=== PATIENT | male | born 1955 | race Caucasian/White ===

== ENCOUNTER 2019-05-25 18:33 | Inpatient (IN) | payer MEDICARE, OTHER ==
[~2019-05-25] VITALS: Ht 170.2 cm; Wt 54.4 kg
[2019-05-25] MEDS ORDERED: IV RINGERS SOLUTION,LACTATED 1,000 ML IV SCH (18:49)
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
[2019-05-25] MEDS ORDERED: ONDANSETRON PF 4 MG/2 ML VIAL. IV PRN (19:00)
[2019-05-25] MEDS ORDERED: ACETAMINOPHEN 325 MG TABLET PO PRN (19:00)
[2019-05-25] MEDS ORDERED: VANCOMYCIN 1 GM in IV NORMAL SALINE 250ML 250 ML IV ONE (19:00)
[2019-05-25] MEDS ORDERED: cefTRIAXone SODIUM 1 GM VIAL ONE ×2 (19:02→19:57)
[2019-05-25] MEDS ORDERED: IV NORMAL SALINE 50ML 50 ML ONE (19:02)
--- NOTE | 2019-05-25 19:13 | RAD ---
Exam: Chest one view INDICATION: Cough TECHNIQUE: Frontal view of the chest Comparisons: None FINDINGS: The cardiomediastinal silhouette and pulmonary vessels are within normal limits. The lung and pleural spaces are clear. IMPRESSION: No acute cardiopulmonary process. Electronically signed by: Tessie Morales MD (05/25/2019 7:10 PM) [facility]
[2019-05-25] MEDS ORDERED: VANCOMYCIN PER PHARMACY MC PRN (19:15)
[2019-05-25] MEDS ORDERED: AZITHROMYCIN 250 MG TABLET. PO ONE (19:30)
[2019-05-25] MEDS ORDERED: VANCOMYCIN 1.5 GM in IV NORMAL SALINE 500ML 500 ML IV ONE (19:45)
[2019-05-25 19:53] LABS: BASO # 0.1 x10^3/uL (0.0-0.2); BASO % 1 % (0-3); EOS % 0 % (0-3); HEMATOCRIT 38.6 % (39.0-53.0); HEMOGLOBIN 12.8 g/dL (13.0-17.5); LYMPH # 1.3 x10^3/uL (1.0-4.8); LYMPH % 13 % (24-48); MEAN CORPUSCULAR HEMOGLOBIN 31 pg (25-35); MEAN CORPUSCULAR HGB CONC 33 g/dL (31-37); MEAN CORPUSCULAR VOLUME 92 fL (79-100); MONO # 0.8 x10^3/uL (0.0-1.1); MONO % 8 % (0-9); NEUT # 8.1 x10^3uL (1.8-7.7); NEUT % 78 % (31-73); PLATELET COUNT 285 x10^3/uL (140-400); RED BLOOD COUNT 4.19 x10^6/uL (4.30-5.70); RED CELL DISTRIBUTION WIDTH 14.3 % (11.5-14.5); WHITE BLOOD COUNT 10.3 x10^3/uL (4.0-11.0)
[2019-05-25] MEDS ORDERED: IV NORMAL SALINE 100ML 100 ML ONE (19:56)
[2019-05-25 20:11] LABS: ALBUMIN 3.4 g/dL (3.4-5.0); CALCIUM 8.9 mg/dL (8.5-10.1); CREATININE 1.3 mg/dL (0.7-1.3); DIRECT BILIRUBIN 0.1 mg/dL (0.0-0.2); GFR 55.4; MAGNESIUM 1.9 mg/dL (1.8-2.4); POTASSIUM 4.3 mmol/L (3.5-5.1); TOTAL BILIRUBIN 0.4 mg/dL (0.2-1.0)
[2019-05-25 21:30] VITALS: BP 126/76
[2019-05-25 21:38] LABS: BARBITURATES NEG (NEG); BENZODIAZEPINES NEG (NEG); CANNABINOIDS NEG (NEG); COCAINE POS (NEG); METHADONE NEG (NEG); OPIATES NEG (NEG); PHENCYCLIDINE NEG (NEG)
[2019-05-25 21:40] LABS: AMPHETAMINE/METHAMPHETAMINE POS (NEG)
[2019-05-25 21:54] LABS: BILIRUBIN,URINE NEG (NEG); CLARITY,URINE CLEAR; COLOR,URINE AMBER; GLUCOSE,URINE NEG (NEG)
[2019-05-25 21:55] LABS: BACTERIA,URINE FEW /HPF (0-FEW); NITRITE,URINE NEG (NEG); RBC,URINE OCC /HPF (0-2); SQUAMOUS EPITHELIAL CELL,UR OCC /LPF; UROBILINOGEN,URINE 0.2 mg/dL (0.2 mg/dL); WBC,URINE 0 /HPF (0-4)
[2019-05-25] MEDS ORDERED: CYCL5TAB PO (22:31)
--- NOTE | 2019-05-25 23:46 | RAD ---
Exam: Bilateral lower extremity venous duplex study INDICATION: Leg swelling TECHNIQUE: Using a combination of real-time ultrasound imaging and color-flow and pulse Doppler imaging techniques along with graded compression and augmentation, duplex evaluation of the deep venous systems of bilateral lower extremity was performed. Multiple images were obtained. Findings: There is no sonographic evidence for deep venous thrombosis involving the visualized deep venous structures of the bilateral lower extremity. IMPRESSION: No acute DVT in the bilateral lower extremities. Electronically signed by: Tessie Morales MD (05/25/2019 11:44 PM) [facility]
--- NOTE | 2019-05-26 00:10 | RAD ---
Exam: Ultrasound penis Indication: Penile injury Technique: Real-time grayscale and color Doppler images of the penis were obtained by the department offset second press operator. Comparisons: None FINDINGS: Soft tissues are diffusely edematous. Along the left lateral undersurface of the penis there is a heterogenous area which measures 4.4 x 3.0 x 2.5 cm which runs along the left lateral margin of the corpus spongiosum and undersurface of the left corpus cavernosum. IMPRESSION: 1. Heterogeneously hypoechoic area measuring 4.4 x 3.3 x 2.5 cm along the left lateral surface of the corpus spongiosum and undersurface of the left corpus cavernosum and likely within the deep fascia concerning for ruptured corpus cavernosum 2. A break within the tunica albuginea is not identified on ultrasound. If further evaluation is desired MRI can be performed. Electronically signed by: Tessie Morales MD (05/26/2019 12:07 AM) [facility]
[2019-05-26] MEDS ORDERED: ALBU2.5V8 INH (01:39)
--- NOTE | 2019-05-26 02:03 | EKG ---
[address] [address] Test Date: 2019-05-25 Test Time: 19:16:35 Pat Name: ALEJANDRA GARNRE Department: Room: Gender: M Learning Analyst: JOSE DE JESUS : 1955 Requested By: LEA BANEGAS Order Number: [id number] Reading MD: Measurements Intervals [place] Rate: 99 P: 59 DE: 132 QRS: 61 QRSD: 84 T: 72 QT: 320 QTc: 416 Interpretive Statements SINUS RHYTHM ATRIAL PREMATURE COMPLEX(ES) OTHERWISE NORMAL ECG RI6.01 No previous ECG available for comparison
[2019-05-26 06:55] VITALS: BP 118/75
[2019-05-26 07:00] LABS: BASO # 0.1 x10^3/uL (0.0-0.2); BASO % 1 % (0-3); EOS % 0 % (0-3); HEMATOCRIT 35.1 % (39.0-53.0); HEMOGLOBIN 11.7 g/dL (13.0-17.5); LYMPH # 1.4 x10^3/uL (1.0-4.8); LYMPH % 12 % (24-48); MEAN CORPUSCULAR HEMOGLOBIN 30 pg (25-35); MEAN CORPUSCULAR HGB CONC 33 g/dL (31-37); MEAN CORPUSCULAR VOLUME 91 fL (79-100); MONO # 1.1 x10^3/uL (0.0-1.1); MONO % 10 % (0-9); NEUT # 9.2 x10^3uL (1.8-7.7); NEUT % 78 % (31-73); PLATELET COUNT 253 x10^3/uL (140-400); RED BLOOD COUNT 3.86 x10^6/uL (4.30-5.70); RED CELL DISTRIBUTION WIDTH 14.1 % (11.5-14.5); WHITE BLOOD COUNT 11.9 x10^3/uL (4.0-11.0)
[2019-05-26 07:22] LABS: CALCIUM 8.4 mg/dL (8.5-10.1); CREATININE 1.1 mg/dL (0.7-1.3); GFR 67.2; POTASSIUM 4.1 mmol/L (3.5-5.1)
[2019-05-26] MEDS ORDERED: VANCOMYCIN 1 GM in IV NORMAL SALINE 250ML 250 ML IV SCH (09:00)
[2019-05-26 10:49] VITALS: BP 107/62
[2019-05-26] MEDS ORDERED: NICOTINE 21MG PATCH. TD SCH (12:15)
[2019-05-26 15:09] VITALS: BP 113/64
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
[2019-05-26] MEDS ORDERED: VANCOMYCIN 750 MG in IV NORMAL SALINE 250ML 250 ML IV SCH (21:00)
== END 2019-05-26 16:00 | disposition short-term general hospital (02) | DRG 728 ==
LOC: ER 18:33 → 1 SOUTH 19:00
PROVIDERS: ADMIT Internal Medicine; ATTEND Internal Medicine
DX: N48.22 Cellulitis of corpus cavernosum and penis (principal); J44.9 Chronic obstructive pulmonary disease, unspecified; Z87.891 Personal history of nicotine dependence; D64.9 Anemia, unspecified; E11.9 Type 2 diabetes mellitus without complications; Z79.899 Other long term (current) drug therapy
CPT/HCPCS: 36415; 71045; 80048; 80076; 80307; 81001; 82550; 83690; 83735; 83880; 84443; 84484; 85025; 85379; 85610; 85651; 85730; 86705; 86709; 86803; 87040; 87340; 87521; 93005; 93970; 93976; 96365; 96368; G0238; J0456; J0696; J3010; J3370; J3490; J7040; J7120; 99285-25

== ENCOUNTER 2021-12-29 13:10 | Emergency (ER) | payer OTHER ==
[~2021-12-29] VITALS: Ht 170.2 cm; Wt 54.4 kg
[~2021-12-29 13:10] MED LIST: ALBU2.5V8 INH; CYCL5TAB PO
--- NOTE | 2021-12-29 14:01 | PHYS DOC ---
Past History Past Medical History: COPD Additional Past Medical Histor: Hep-C Past Surgical History: No Surgical History Smoking: Cigarettes Alcohol Use: None Drug Use: None General Adult EDM: Chief Complaint: COUGH HPI: HPI: Patient is a 66-year-old male who presents to the emergency department today for hemoptysis that started 3 days ago. Patient is also reporting bloody nasal drainage. He showed me a piece of tissue which did have mucus and dark red blood clot in it. Patient reports chronic shortness of breath due to COPD. Patient also has a history of hepatitis C. Patient reports he is currently on an antibiotic for a subcutaneous cyst. Patient denies any chest pain, history of hemoptysis, history of pulmonary embolisms or DVTs, recent surgeries, blood thinner use, fever, leg swelling. Review of Systems: Review of Systems: Constitutional: See HPI HENT: See HPI Respiratory: See HPI Cardiovascular: See HPI Musculoskeletal: See HPI Integument: See HPI Allergies: Allergies: Allergies Coded Allergies Type Severity Reaction Last Updated Verified No Known Drug Allergies 05/25/19 No Physical Exam: PE: Constitutional: Well developed, no acute distress, non-toxic appearance. [] HENT: Normocephalic, atraumatic, bilateral external ears normal, oropharynx moist, no oral exudates, nose normal. [] Eyes: PERRL, EOMI, conjunctiva normal, no discharge. [] Neck: Normal range of motion, no stridor Cardiovascular:Heart rate regular rhythm, no murmur [] Lungs & Thorax: Bilateral breath sounds clear to auscultation [] Abdomen: Bowel sounds normal, soft, no tenderness, no masses, no pulsatile masses. [] Skin: Warm, dry, no erythema, no rash. [] Back: Normal range of motion Extremities: No tenderness, no cyanosis, no clubbing, ROM intact, no edema. [] Neurologic: Alert and oriented X 3, normal motor function, normal sensory funct ion, no focal deficits noted. [] Psychologic: Affect normal, judgement normal, mood normal. [] Current Patient Data: Labs: Laboratory Tests Test 12/29/21 14:03 White Blood Count 5.1 x10^3/uL Red Blood Count 4.62 x10^6/uL Hemoglobin 14.0 g/dL Hematocrit 42.5 % Mean Corpuscular Volume 92 fL Mean Corpuscular Hemoglobin 30 pg Mean Corpuscular Hemoglobin Concent 33 g/dL Red Cell Distribution Width 13.9 % Platelet Count 345 x10^3/uL Neutrophils (%) (Auto) 51 % Lymphocytes (%) (Auto) 31 % Monocytes (%) (Auto) 14 % Eosinophils (%) (Auto) 2 % Basophils (%) (Auto) 1 % Neutrophils # (Auto) 2.6 x10^3uL Lymphocytes # (Auto) 1.6 x10^3/uL Monocytes # (Auto) 0.7 x10^3/uL Eosinophils # (Auto) 0.1 x10^3/uL Basophils # (Auto) 0.0 x10^3/uL D-Dimer (Alice) 0.74 mg/L Sodium Level 138 mmol/L Potassium Level 4.9 mmol/L Chloride Level 102 mmol/L Carbon Dioxide Level 26 mmol/L Anion Gap 10 Blood Urea Nitrogen 24 mg/dL Creatinine 1.4 mg/dL Estimated GFR (Cockcroft-Gault) 50.4 BUN/Creatinine Ratio 17 Glucose Level 141 mg/dL Calcium Level 9.9 mg/dL Total Bilirubin 0.2 mg/dL Aspartate Amino Transf (AST/SGOT) 51 U/L Alanine Aminotransferase (ALT/SGPT) 96 U/L Alkaline Phosphatase 99 U/L Troponin I High Sensitivity 9 ng/L Total Protein 7.3 g/dL Albumin 3.7 g/dL Albumin/Globulin Ratio 1.0 Current Medications Medications (Trade) Dose Ordered Sig/Maisha Route PRN Reason Start Time Stop Time Status Last Admin Dose Admin Iohexol (Omnipaque 350 Mg/ml) 100 ml 1X ONCE IV 12/29/21 15:00 12/29/21 15:01 DC 12/29/21 15:04 Info (Do NOT chart on this entry -- for MONITORING) 1 each PRN DAILY PRN MC SEE COMMENTS 12/29/21 15:15 12/31/21 15:14 Vital Signs: Vital Signs Date Time Temp Pulse Resp B/P (MAP) Pulse Ox O2 Delivery O2 Flow Rate FiO2 12/29/21 13:31 98.3 79 18 110/69 (83) 97 Room Air EKG: EKG: EKG performed by ER staff shows sinus rhythm with rate of 78, patient does have some T wave elevation but does not have any reciprocal changes. Radiology/Procedures: Radiology/Procedures: []STATUS: REG ERORD. PHYSICIAN: AMEE THOMASON APRN REASON: elevated ddimer, hemoptysis, reduced dose 75 cc PROCEDURE: CT ANGIOGRAPHY CHEST PQRS Compliance Statement: One or more of the following individualized dose reduction techniques were utilized for this examination: 1. Automated exposure control 2. Adjustment of the mA and/or kV according to patient size 3. Use of iterative reconstruction technique CT CHEST WITH CONTRAST, PULMONARY ANGIOGRAM History: Reason: elevated ddimer, hemoptysis, reduced dose 75 cc / Spl. Instructions: / History: Comparison: None. Technique: Helical CT of the chest was performed after the administration of 75 cc of Omnipaque 300 intravenous contrast according to PE protocol. Axial and coronal reconstructions were obtained. 3-D MIP images were constructed to better evaluate the pulmonary arteries. Findings: Pulmonary arteries are adequately opacified. There is no evidence of pulmonary embolism. There is mild ectasia of the ascending thoracic aorta. There is no dissection. There is no mediastinal adenopathy. No hilar adenopathy. Cardiac size is normal, no pericardial effusion. No pleural abnormality is seen. There is upper lobe centrilobular and paraseptal emphysema that is moderate. There is right lower lobe peribronchial thickening. There is an irregular linear opacity in the posterior left upper lobe measuring 1.1 cm that may be due to scarring. There is a V-shaped branching tubular opacity in the superior segment of the right lower lobe that measures approximately 2.5 x 1.8 cm. A feeding irregular bronchus is seen on image 99. The opacity is low-density, slightly greater than that of simple fluid. Primary consideration is bronchiectasis and mucous plugging. There are several surrounding micronodules more posteriorly. A few tree-in-bud opacities are seen in the superior segment of the left lower lobe, probably infectious/inflammatory. There is prominent stool in visualized colon. There is degenerative spondylosis of L1/L2. IMPRESSION: 1. There is no pulmonary embolus. 2. There is moderate upper lobe centrilobular and paraseptal emphysema. 3. There is an opacity in the superior segment of the right lower lobe that is probably due to bronchiectasis and mucous plugging. There are several surrounding micronodules that are probably infectious/inflammatory. There is right lower lobe bronchitis. Suggest CT chest follow-up in 3 months. Electronically signed by: Tomy Taylor MD (12/29/2021 3:32 PM) [id number] DICTATED AND SIGNED BY: TOMY TAYLOR MD DATE: 12/29/21 1518 CC: AMEE THOMASON APRN; PAPO LEI MD ~MTH0 0PROCEDURE: PORTABLE CHEST 1V XR CHEST 1V Clinical Indication: Reason: hemoptysis / Spl. Instructions: / History: Comparison: AP chest May 25, 2019. Findings: Atherosclerotic aortic arch. The cardiomediastinal silhouette is normal. Minimal linear scarring in the medial right lung base. Lungs are clear. Lungs borderline hyperexpanded. There is no pneumothorax. No pleural effusion is appreciated. No acute bone abnormality. IMPRESSION: No acute cardiopulmonary process. Electronically signed by: Tomy Taylor MD (12/29/2021 2:43 PM) [id number] DICTATED AND SIGNED BY: TOMY TAYLOR MD DATE: 12/29/21 1442 CC: AMEE THOMASON APRN; PAPO LEI MD ~MTH0 0 Heart Score: C/O Chest Pain: No Risk Factors: Risk Factors: DM, Current or recent (<one month) smoker, HTN, HLP, family history of CAD, obesity. Risk Scores: Score 0 - 3: 2.5% MACE over next 6 weeks - Discharge Home Score 4 - 6: 20.3% MACE over next 6 weeks - Admit for Clinical Observation Score 7 - 10: 72.7% MACE over next 6 weeks - Early Invasive Strategies Course & Med Decision Making: Course & Med Decision Making Pertinent Labs and Imaging studies reviewed. (See chart for details) [] Patient presents to the emergency department for hemoptysis that started 3 days ago. Patient's Wells score indicates low risk for a PE but there is only risk factor being the hemoptysis. Patient does have a history of COPD and hep C. Work-up in the ER consisted of blood work including a D-dimer, chest x-ray to rule out pneumonia and an EKG. CBC was unremarkable. Patient does have elevated liver enzymes which is consistent with his hepatitis diagnosis, no elevated troponin, D-dimer is elevated at 0.[address] angio of his chest was performed to rule out a pulmonary embolism. CT does not show any PE, he does have emphysemic changes in upper lobe and paraseptal region. He has r. lower bronchitis and micronodules which could be infectious vs inflammatory per radiologist. Patient will be treated with abx the infectious findings on chest ct. Combination therapy used as he does have comorbidities with hep C and copd. He is advised to follow up with his PCP, continue copd medications as previously prescribed. Patients vital signs are stable. I discussed with patient all findings and diagnostic testing as well as the need to follow-up with PCP for further evaluation and treatment or return to the ER if any new or worsening symptoms. Strict return precautions were also discussed at length. Patient voiced understanding and agreement with the plan. Patient is hemodynamically stable at the time of disposition. Dragon Disclaimer: [employer] Disclaimer: This electronic medical record was generated, in whole or in part, using a voice recognition dictation system. Departure Departure: Impression: Primary Impression: Pneumonia Qualified Codes: J18.9 - Pneumonia, unspecified organism Disposition: HOME / SELF CARE / HOMELESS Condition: GOOD Referrals: PAPO LEI MD (PCP) Patient Instructions: Acute Bronchitis, Pneumonia, Adult Additional Instructions: You are seen in the emergency department today for hemoptysis. You were noted to have emphysema changes in your ER notes, bronchitis and pneumonia. This can be treated with an antibiotic. Please start and finish the antibiotic completely. Increase your fluids to thin the secretions. Continue taking your COPD medications as directed. Follow-up with your primary care provider tomorrow regarding your ER visit. Return to the emergency department if you develop worsening of your shortness of breath, chest pain, high fevers refractory to treatment, intractable nausea or vomiting, weakness, confusion, lethargy. Scripts Amoxicillin/Potassium Clav (AMOX TR-K CLV 875-125 MG TAB) 1 Each Tablet 1 TAB PO BID for infection for 5 Days, #10 TAB 0 Refills Prov: AMEE THOMASON APRN 12/29/21 Doxycycline Hyclate (DOXYCYCLINE HYCLATE) 100 Mg Capsule 1 CAP PO BID for infection for 5 Days, #10 CAP 0 Refills Prov: AMEE THOMASON SECTION HOUSEKEEPER 12/29/21 AMEE THOMASON APRN Dec 29, 2021 14:01
[2021-12-29 14:20] LABS: BASO % 1 % (0-3); EOS # 0.1 x10^3/uL (0.0-0.7); EOS % 2 % (0-3); HEMATOCRIT 42.5 % (39.0-53.0); LYMPH # 1.6 x10^3/uL (1.0-4.8); LYMPH % 31 % (24-48); MEAN CORPUSCULAR HEMOGLOBIN 30 pg (25-35); MEAN CORPUSCULAR HGB CONC 33 g/dL (31-37); MEAN CORPUSCULAR VOLUME 92 fL (79-100); MONO # 0.7 x10^3/uL (0.0-1.1); MONO % 14 % (0-9); NEUT # 2.6 x10^3uL (1.8-7.7); NEUT % 51 % (31-73); PLATELET COUNT 345 x10^3/uL (140-400); RED BLOOD COUNT 4.62 x10^6/uL (4.30-5.70); RED CELL DISTRIBUTION WIDTH 13.9 % (11.5-14.5); WHITE BLOOD COUNT 5.1 x10^3/uL (4.0-11.0)
[2021-12-29 14:30] LABS: CALCIUM 9.9 mg/dL (8.5-10.1); CREATININE 1.4 mg/dL (0.7-1.3); GFR 50.4; POTASSIUM 4.9 mmol/L (3.5-5.1)
[2021-12-29 14:36] LABS: ALBUMIN 3.7 g/dL (3.4-5.0); TOTAL BILIRUBIN 0.2 mg/dL (0.2-1.0); TOTAL PROTEIN 7.3 g/dL (6.4-8.2)
--- NOTE | 2021-12-29 14:46 | RAD ---
XR CHEST 1V Clinical Indication: Reason: hemoptysis / Spl. Instructions: / History: Comparison: AP chest May 25, 2019. Findings: Atherosclerotic aortic arch. The cardiomediastinal silhouette is normal. Minimal linear scarring in t he medial right lung base. Lungs are clear. Lungs borderline hyperexpanded. There is no pneumothorax. No pleural effusion is appreciated. No acute bone abnormality. IMPRESSION: No acute cardiopulmonary process. Electronically signed by: Tomy Palma MD (12/29/2021 2:43 PM) [id number]
[2021-12-29] MEDS ORDERED: IOHEXOL 350 MG/ML 100 ML VIAL. IV ONE (15:00)
[2021-12-29] MEDS ORDERED: CONTRAST GIVEN. MC PRN (15:15)
--- NOTE | 2021-12-29 15:35 | RAD ---
PQRS Compliance Statement: One or more of the following individualized dose reduction techniques were utilized for this examinat ion: 1. Automated exposure control 2. Adjustment of the mA and/or kV according to patient size 3. Use of iterative reconstruction technique CT CHEST WITH CONTRAST, PULMONARY ANGIOGRAM History: Reason: elevated ddimer, hemoptysis, reduced dose 75 cc / Spl. Instructions: / History: Comparison: None. Technique: Helical CT of the chest was performed after the administration of 75 cc of Omnipaque 300 intravenous contrast according to PE protocol. Axial and coronal reconstructions were obtained. 3-D MIP images were constructed to better evaluate the pulmonary arteries. Findings: Pulmonary arteries are adequately opacified. There is no evidence of pulmonary embolism. There is mild ectasia of the ascending thoracic aorta. There is no dissection. There is no mediastina l adenopathy. No hilar adenopathy. Cardiac size is normal, no pericardial effusion. No pleural abnorm ality is seen. There is upper lobe centrilobular and paraseptal emphysema that is moderate. There is right lower lob e peribronchial thickening. There is an irregular linear opacity in the posterior left upper lobe shannan suring 1.1 cm that may be due to scarring. There is a V-shaped branching tubular opacity in the superior segment of the right lower lobe that me asures approximately 2.5 x 1.8 cm. A feeding irregular bronchus is seen on image 99. The opacity is l ow-density, slightly greater than that of simple fluid. Primary consideration is bronchiectasis and m ucous plugging. There are several surrounding micronodules more posteriorly. A few tree-in-bud opacities are seen in the superior segment of the left lower lobe, probably infecti ous/inflammatory. There is prominent stool in visualized colon. There is degenerative spondylosis of L1/L2. IMPRESSION: 1. There is no pulmonary embolus. 2. There is moderate upper lobe centrilobular and paraseptal emphysema. 3. There is an opacity in the superior segment of the right lower lobe that is probably due to bronc hiectasis and mucous plugging. There are several surrounding micronodules that are probably infectiou s/inflammatory. There is right lower lobe bronchitis. Suggest CT chest follow-up in 3 months. Electronically signed by: Tomy Palma MD (12/29/2021 3:32 PM) [id number]
[2021-12-29 15:37] VITALS: BP 111/72
[2021-12-29] MEDS ORDERED: AMOX1TAB11 PO (15:49)
[2021-12-29] MEDS ORDERED: DOXY100C3 PO (15:49)
--- NOTE | 2021-12-29 18:11 | EKG ---
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
== END 2021-12-29 16:01 | disposition home or self-care (01) ==
LOC: ER 13:10
DX: J18.9 Pneumonia, unspecified organism (principal); J44.9 Chronic obstructive pulmonary disease, unspecified; F17.210 Nicotine dependence, cigarettes, uncomplicated
CPT/HCPCS: 36415; 71045; 71275; 80053; 84484; 85025; 85379; 93005; 99285; Q9967

== ENCOUNTER 2022-02-23 13:19 | Emergency (ER) | payer OTHER ==
[~2022-02-23] VITALS: Ht 170.2 cm; Wt 54.4 kg
[~2022-02-23 13:19] MED LIST changes: +AMOX1TAB11 PO; +DOXY100C3 PO
--- NOTE | 2022-02-23 13:41 | PHYS DOC ---
Past History Past Medical History: COPD Additional Past Medical Histor: Hep-C Past Surgical History: No Surgical History Smoking: Cigarettes Alcohol Use: None Drug Use: None General Adult EDM: Chief Complaint: CHEST PAIN HPI: HPI: 66-year-old male presents with chest pain. Patient states he has had pain for a couple of days. It is a pressure type sensation that radiates through to his back. He came in today because he feels like it is getting worse. It is currently a 7 out of 10. He has not taken an aspirin today. No history of cardiac disease. He does have COPD for which she uses albuterol MDI. He has had some increased fatigue. Denies fever or chills. Review of Systems: Review of Systems: Constitutional: Denies fever or chills Eyes: Denies change in visual acuity HENT: Denies nasal congestion or sore throat Respiratory: Denies cough or shortness of breath Cardiovascular: Chest pain GI: Denies abdominal pain, nausea, vomiting, bloody stools or diarrhea : Denies dysuria Musculoskeletal: Denies back pain or joint pain Integument: Denies rash Neurologic: Denies headache, focal weakness or sensory changes Endocrine: Denies polyuria or polydipsia Lymphatic: Denies swollen glands Psychiatric: Denies depression or anxiety Allergies: Allergies: Allergies Coded Allergies Type Severity Reaction Last Updated Verified No Known Drug Allergies 05/25/19 No Physical Exam: PE: Constitutional: Well developed, well nourished, no acute distress, non-toxic appearance. [] HENT: Normocephalic, atraumatic, bilateral external ears normal, oropharynx moist, no oral exudates, nose normal. [] Eyes: PERRLA, EOMI, conjunctiva normal, no discharge. [] Neck: Normal range of motion, no tenderness, supple, no stridor. [] Cardiovascular: Heart rate 110, regular rhythm, no murmur [] Lungs & Thorax: Bilateral breath sounds clear to auscultation [] Abdomen: Bowel sounds normal, soft, no tenderness, no masses, no pulsatile masses. [] Skin: Warm, dry, no erythema, no rash. [] Back: No tenderness, no CVA tenderness. [] Extremities: No tenderness, no cyanosis, no clubbing, ROM intact, no edema. [] Neurologic: Alert and oriented X 3, normal motor function, normal sensory function, no focal deficits noted. [] Psychologic: Affect normal, judgement normal, mood normal. [] EKG: EKG: Sinus rhythm, rate 110, normal axis, no ST elevation or depression. [] Radiology/Procedures: Radiology/Procedures: [] Impressions: EXAM: XR CHEST 1V 02/23/2022 2:06 PM CLINICAL INDICATION: Chest pain COMPARISON: Chest radiograph 12/29/2021 TECHNIQUE: AP view of the chest FINDINGS: The heart is normal in size. Lungs are adequately expanded. There are streaky opacities in the medial right lung base. No pleural effusion or pneumothorax. IMPRESSION: Mild streaky opacities in the medial right lung base could be atelectasis or pneumonia. Electronically signed by: Perla Carter MD (02/23/2022 2:16 PM) [id number] DICTATED AND SIGNED BY: PERLA CARTER MD DATE: 02/23/22 1415 CC: MILA PATEL DO; PAPO LEI MD ~ Heart Score: C/O Chest Pain: Yes HEART Score for Chest Pain: HEART Score for Chest Pain Response (Comments) Value History Slighlty/Non-Suspicious 0 ECG Normal 0 Age > 65 2 Risk Factors 1 or 2 Risk Factors 1 Total 3 Risk Factors: Risk Factors: DM, Current or recent (<one month) smoker, HTN, HLP, family history of CAD, obesity. Risk Scores: Score 0 - 3: 2.5% MACE over next 6 weeks - Discharge Home Score 4 - 6: 20.3% MACE over next 6 weeks - Admit for Clinical Observation Score 7 - 10: 72.7% MACE over next 6 weeks - Early Invasive Strategies Course & Med Decision Making: Course & Med Decision Making Pertinent Labs and Imaging studies reviewed. (See chart for details) The patient's labs are unremarkable. His troponin is negative. His EKG is only significant for tachycardia. I have given a liter of normal saline. His heart rate has improved to within normal limits. His chest x-ray is suggestive of atelectasis or pneumonia. I will treat him in the ER with Rocephin and azithromycin. I will discharge him with a prescription for azithromycin. He is stable for discharge at this time. [] Dragon Disclaimer: Dragon Disclaimer: This electronic medical record was generated, in whole or in part, using a voice recognition dictation system. Departure Departure: Impression: Primary Impression: Chest pain Additional Impression: Pneumonia Disposition: HOME / SELF CARE / HOMELESS Condition: STABLE Referrals: PAPO LEI MD (PCP) Patient Instructions: Pneumonia, Adult, [id number] Scripts Azithromycin (AZITHROMYCIN TABLET) 250 Mg Tablet 250 MG PO DAILY for ANTI-BIOTIC for 4 Days, #4 TAB 0 Refills Prov: MILA PATEL DO 02/23/22 MILA PATEL DO February 23, 2022 13:41
--- NOTE | 2022-02-23 13:42 | EKG ---
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
[2022-02-23] MEDS ORDERED: IV NORMAL SALINE 1,000ML 1,000 ML IV ONE (13:45)
[2022-02-23 13:52] LABS: BASO # 0.1 x10^3/uL (0.0-0.2); BASO % 1 % (0-3); EOS # 0.2 x10^3/uL (0.0-0.7); EOS % 2 % (0-3); HEMATOCRIT 38.1 % (39.0-53.0); HEMOGLOBIN 12.9 g/dL (13.0-17.5); LYMPH # 1.8 x10^3/uL (1.0-4.8); LYMPH % 19 % (24-48); MEAN CORPUSCULAR HEMOGLOBIN 30 pg (25-35); MEAN CORPUSCULAR HGB CONC 34 g/dL (31-37); MEAN CORPUSCULAR VOLUME 89 fL (79-100); MONO # 0.7 x10^3/uL (0.0-1.1); MONO % 7 % (0-9); NEUT # 6.7 x10^3uL (1.8-7.7); NEUT % 71 % (31-73); PLATELET COUNT 185 x10^3/uL (140-400); RED BLOOD COUNT 4.28 x10^6/uL (4.30-5.70); RED CELL DISTRIBUTION WIDTH 14.1 % (11.5-14.5); WHITE BLOOD COUNT 9.4 x10^3/uL (4.0-11.0)
[2022-02-23 14:04] VITALS: BP 134/78
[2022-02-23 14:05] LABS: CALCIUM 10.2 mg/dL (8.5-10.1); CREATININE 1.4 mg/dL (0.7-1.3); GFR 50.4; POTASSIUM 4.1 mmol/L (3.5-5.1)
[2022-02-23 14:11] LABS: ALBUMIN 3.3 g/dL (3.4-5.0); ALBUMIN/GLOBULIN RATIO 0.9 (1.0-1.7); TOTAL BILIRUBIN 0.3 mg/dL (0.2-1.0); TOTAL PROTEIN 6.8 g/dL (6.4-8.2)
--- NOTE | 2022-02-23 14:19 | RAD ---
EXAM: XR CHEST 1V 02/23/2022 2:06 PM CLINICAL INDICATION: Chest pain COMPARISON: Chest radiograph 12/29/2021 TECHNIQUE: AP view of the chest FINDINGS: The heart is normal in size. Lungs are adequately expanded. There are streaky opacities in the medial right lung base. No pleural effusion or pneumothorax. IMPRESSION: Mild streaky opacities in the medial right lung base could be atelectasis or pneumonia. Electronically signed by: Perla Carter MD (02/23/2022 2:16 PM) [id number]
[2022-02-23] MEDS ORDERED: AZIT250T6 PO (14:58)
[2022-02-23] MEDS ORDERED: AZITHROMYCIN 250 MG TABLET. PO ONE (15:00)
[2022-02-23] MEDS ORDERED: ALBUTEROL SULFATE 8GM INHALER. ONE (15:04)
[2022-02-23] MEDS ORDERED: cefTRIAXone SODIUM 1 GM VIAL ONE (15:11)
[2022-02-23] MEDS ORDERED: IV NORMAL SALINE 50ML 0 ML ONE (15:11)
[2022-02-23 15:16] LABS: % BANDS 3 % (0-9); % BASOS 1 % (0-3); % EOS 3 % (0-5); % LYMPHS 16 % (24-48); % METAS 0 % (0-0); % MONOS 12 % (0-10); % MYELOS 1 % (0-0); % SEGS 64 % (35-66)
[2022-02-23 15:18] LABS: NUCLEATED RBC 1; PLT ESTIMATE ADEQUATE (ADEQUATE)
== END 2022-02-23 16:00 | disposition home or self-care (01) ==
LOC: ER 13:25
DX: J18.9 Pneumonia, unspecified organism (principal); R07.89 Other chest pain; R53.83 Other fatigue; J44.9 Chronic obstructive pulmonary disease, unspecified; F17.210 Nicotine dependence, cigarettes, uncomplicated
CPT/HCPCS: 36415; 71045; 80053; 82140; 83880; 84484; 85007; 85025; 93005; 96361; 96365; 99285; J0696; J7030